=== PATIENT | female | born 1955 | race Two or more races ===

== ENCOUNTER 2022-03-15 20:52 | Inpatient (IN) | payer OTHER, MEDICAID ==
[~2022-03-15] VITALS: Ht 160 cm; Wt 188.9 kg
[2022-03-15] MEDS ORDERED: InsuLIN REG 1unit/0.01ml Soln (100units/ml) IV ONE (22:15)
[2022-03-15] MEDS ORDERED: SODIUM CHLORIDE 0.9% 1,000 ML IV ONE (22:15)
[2022-03-15 22:25] LABS: Urine Bacteria NONE SEEN /hpf (None Seen); Urine Blood Negative /uL (Negative); Urine Specific Gravity 1.031 (1.001-1.035); Urine WBC 1 /hpf (0 - 5)
[2022-03-15 23:30] LABS: Basophils # (auto) 0 10 ^3/uL (0-0.2); Basophils % (auto) 0.3 % (0.0-2.0); Eosinophils # (auto) 0.2 10 ^3/uL (0-0.8); Hematocrit 48.3 % (36.0-46.0); Hemoglobin 15.5 g/dL (12.2-16.2); Lymphocytes # (auto) 1.9 10 ^3/uL (0.4-5.4); Lymphocytes % (auto) 24.9 % (10.0-50.0); Mean Corpuscular Hemoglobin 29.6 pg (28.0-32.0); Mean Corpuscular Hgb Conc. 32.1 g/dL (32.0-36.0); Mean Corpuscular Volume 92.3 fL (80.0-100.0); Monocytes # (auto) 0.6 10 ^3/uL (0-1.3); Monocytes % (auto) 7.2 % (0.0-12.0); Neutrophils % (auto) 64.6 % (37.0-80.0); Nucleated Red Blood Cells % 0.1 %; Red Blood Cells 5.23 10^6/uL (4.0-5.20); Red Cell Distribution Width 13.2 % (11.8-14.3); White Blood Cell 7.8 10^3/uL (4.4-10.8)
[2022-03-15 23:51] LABS: Albumin 3.7 g/dL (3.4-5.0); Calcium 9.6 mg/dL (8.5-10.1); Potassium 5.2 mmol/L (3.5-5.1)
[2022-03-15 23:55] LABS: Total Protein 7.1 g/dL (6.4-8.2)
[2022-03-16] LABS: Bilirubin, Total 0.6 mg/dL (0.2-1.0)
[2022-03-16] MEDS ORDERED: SODIUM CHLORIDE 0.9% 1,000 ML IV ONE (02:00)
[2022-03-16] MEDS ORDERED: diazePAM 5 MG TAB PO ONE (04:15)
[2022-03-16] MEDS ORDERED: DEXTROSE (50%) 50ML SYRG IV PRN ×2 (04:15→13:15)
[2022-03-16] MEDS ORDERED: ACETAMINOPHEN 325 MG TAB PO PRN (04:15)
[2022-03-16] MEDS ORDERED: ONDANSETRON HCL 4 MG/2 ML VIAL IV PRN (04:15)
[2022-03-16] MEDS ORDERED: SODIUM ZIRCONIUM CYCL 10 GM PAK PO ONE (04:15)
[2022-03-16] MEDS ORDERED: TEMAZEPAM 15 MG CAP PO PRN (04:15)
[2022-03-16] MEDS ORDERED: SODIUM CHLORIDE 0.9% 1,000 ML IV SCH ×2 (05:45→12:45)
[2022-03-16] MEDS: ACCU-CHEK COMFORT CURVE STRIP VI SCH ×5 (08:25→23:42)
[2022-03-16] MEDS: InsuLIN REG 1unit/0.01ml Soln (100units/ml) SC SCH ×5 (08:50→23:39)
[2022-03-16] MEDS: PANTOPRAZOLE 40 MG TAB PO SCH (09:15)
[2022-03-16] MEDS: ENOXAPARIN SOD 40 MG/0.4 ML SYRINGE SC SCH (09:16)
[2022-03-16] MEDS ORDERED: LISINOPRIL 20 MG TAB PO SCH (10:00)
[2022-03-16] MEDS ORDERED: CELE100C82 PO (12:08)
[2022-03-16] MEDS ORDERED: LEV50T PO (12:09)
[2022-03-16] MEDS ORDERED: ASPI-543 PO (12:10)
[2022-03-16] MEDS ORDERED: LISI-713 PO (12:10)
[2022-03-16] MEDS ORDERED: amLODIPine BESYLATE 5 MG TAB PO ONE (12:45)
[2022-03-16] MEDS: SODIUM CHLORIDE 0.9% 1,000 ML IV SCH ×2 (13:46→19:55)
[2022-03-16] MEDS ORDERED: CELECOXIB 100 MG CAP PO ONE (14:00)
[2022-03-16] MEDS ORDERED: ASPirin 81 mg TAB PO ONE (14:00)
[2022-03-16 22:00] VITALS: BP 119/64
[2022-03-16] MEDS ORDERED: BECL80AE11 INH (22:33)
[2022-03-16] MEDS ORDERED: GLUC1TAB18 PO (22:33)
[2022-03-16] MEDS ORDERED: POTA8TAB2 PO (22:33)
[2022-03-16] MEDS ORDERED: DIAZ2TAB2 PO (22:33)
[2022-03-16] MEDS ORDERED: CHOLCAP11 PO (22:33)
[2022-03-16] MEDS ORDERED: ASCO500T11 GT (22:33)
[2022-03-16] MEDS ORDERED: AZEL0.1S NAS (22:33)
[2022-03-16] MEDS ORDERED: MAGN400T40 OR (22:33)
[2022-03-16] MEDS ORDERED: ALBUAER3 IN (22:33)
[2022-03-16] MEDS ORDERED: TRIA0.1O TOP (22:33)
[2022-03-16] MEDS ORDERED: RIBO100T3 PO (22:33)
[2022-03-16] MEDS ORDERED: HYDR-4902 PO (22:33)
[2022-03-16] MEDS ORDERED: OYST500T28 PO (22:33)
[2022-03-16] MEDS ORDERED: GING500C3 PO (22:33)
[2022-03-16] MEDS ORDERED: CLON0.1T PO (22:33)
[2022-03-16] MEDS ORDERED: MILK1000 OR (22:33)
[2022-03-16] MEDS ORDERED: VITA400T4 PO (22:33)
[2022-03-17] MEDS: SODIUM CHLORIDE 0.9% 1,000 ML IV SCH ×4 (03:32→22:52)
[2022-03-17] MEDS: ACCU-CHEK COMFORT CURVE STRIP VI SCH ×5 (04:02→20:28)
[2022-03-17] MEDS: InsuLIN REG 1unit/0.01ml Soln (100units/ml) SC SCH ×5 (04:04→20:28)
[2022-03-17 04:47] VITALS: BP 118/94
[2022-03-17 05:41] LABS: Basophils # (auto) 0 10 ^3/uL (0-0.2); Basophils % (auto) 0.5 % (0.0-2.0); Eosinophils # (auto) 0.4 10 ^3/uL (0-0.8); Eosinophils % (auto) 5.3 % (0.0-7.0); Hematocrit 44.9 % (36.0-46.0); Hemoglobin 14.6 g/dL (12.2-16.2); Lymphocytes # (auto) 2.4 10 ^3/uL (0.4-5.4); Lymphocytes % (auto) 29.7 % (10.0-50.0); Mean Corpuscular Hemoglobin 29.6 pg (28.0-32.0); Mean Corpuscular Hgb Conc. 32.6 g/dL (32.0-36.0); Mean Corpuscular Volume 90.7 fL (80.0-100.0); Monocytes # (auto) 0.8 10 ^3/uL (0-1.3); Monocytes % (auto) 9.4 % (0.0-12.0); Neutrophils # (auto) 4.4 10 ^3/uL (1.6-8.6); Neutrophils % (auto) 55.1 % (37.0-80.0); Nucleated Red Blood Cells % 0.2 %; Red Blood Cells 4.96 10^6/uL (4.0-5.20); Red Cell Distribution Width 13.1 % (11.8-14.3)
[2022-03-17 05:59] LABS: Albumin 3.3 g/dL (3.4-5.0); Potassium 4.7 mmol/L (3.5-5.1)
[2022-03-17 06:04] LABS: BUN/Creatinine Ratio 21.6; Bilirubin, Total 0.9 mg/dL (0.2-1.0); Total Protein 6.4 g/dL (6.4-8.2)
[2022-03-17] MEDS: ASPirin 81 mg TAB PO SCH (08:02)
[2022-03-17] MEDS: PANTOPRAZOLE 40 MG TAB PO SCH (08:02)
[2022-03-17] MEDS: ENOXAPARIN SOD 40 MG/0.4 ML SYRINGE SC SCH (08:02)
[2022-03-17] MEDS: LEVOTHYROXINE SODIUM 50 MCG TAB PO SCH (08:02)
[2022-03-17] MEDS: amLODIPine BESYLATE 5 MG TAB PO SCH (08:03)
[2022-03-17] MEDS: CELECOXIB 100 MG CAP PO SCH (08:04)
[2022-03-17 08:30] VITALS: BP 121/62
[2022-03-17] MEDS ORDERED: LISINOPRIL 20 MG TAB PO SCH (10:00)
[2022-03-17] MEDS ORDERED: PATIENTS OWN MEDICATION (Lisinopril (Zestril) 1 TAB) PO SCH (10:00)
[2022-03-17 12:30] VITALS: BP 106/66
[2022-03-17 16:14] VITALS: BP 89/54
[2022-03-17 18:39] VITALS: BP 108/51
[2022-03-17 22:00] VITALS: BP 115/63
[2022-03-17] MEDS: BECLOMETHASONE PO SCH (22:29)
[2022-03-18] MEDS: InsuLIN REG 1unit/0.01ml Soln (100units/ml) SC SCH ×7 (00:18→23:52)
[2022-03-18] MEDS: ACCU-CHEK COMFORT CURVE STRIP VI SCH ×7 (00:19→23:48)
[2022-03-18 05:00] VITALS: BP 106/58
[2022-03-18] MEDS: SODIUM CHLORIDE 0.9% 1,000 ML IV SCH ×4 (05:15→22:14)
[2022-03-18 05:51] LABS: Albumin 3.1 g/dL (3.4-5.0); BUN/Creatinine Ratio 22.3; Calcium 8.7 mg/dL (8.5-10.1); Potassium 4.9 mmol/L (3.5-5.1)
[2022-03-18 05:54] LABS: Bilirubin, Total 0.8 mg/dL (0.2-1.0)
[2022-03-18 09:00] VITALS: BP 136/81
[2022-03-18] MEDS: ASPirin 81 mg TAB PO SCH (09:16)
[2022-03-18] MEDS: BECLOMETHASONE PO SCH ×2 (09:16→22:00)
[2022-03-18] MEDS: LEVOTHYROXINE SODIUM 50 MCG TAB PO SCH (09:16)
[2022-03-18] MEDS: CELECOXIB 100 MG CAP PO SCH (09:17)
[2022-03-18] MEDS: amLODIPine BESYLATE 5 MG TAB PO SCH (09:17)
[2022-03-18] MEDS: ENOXAPARIN SOD 40 MG/0.4 ML SYRINGE SC SCH (09:18)
[2022-03-18 10:24] LABS: Hepatitis B Surface Antibody Negative (Negative)
[2022-03-18 10:49] LABS: Hepatitis A Total Antibody Negative (Negative)
[2022-03-18] MEDS ORDERED: FURO40TA4 PO (12:30)
[2022-03-18 13:00] VITALS: BP 122/59
[2022-03-18 13:02] LABS: Hepatitis C Antibody Negative (Negative)
[2022-03-18] MEDS ORDERED: FUROSEMIDE 40 MG TAB PO ONE (16:00)
[2022-03-18 17:00] VITALS: BP 119/77
[2022-03-18] MEDS ORDERED: HYDROcodone-ACET 5/325MG TAB PO PRN (17:30)
[2022-03-18 21:49] VITALS: BP 111/63
[2022-03-19] MEDS: ACCU-CHEK COMFORT CURVE STRIP VI SCH ×2 (04:38→08:00)
[2022-03-19] MEDS: InsuLIN REG 1unit/0.01ml Soln (100units/ml) SC SCH ×3 (04:40→12:55)
[2022-03-19 05:00] VITALS: BP 118/66
[2022-03-19 05:51] VITALS: BP 118/66
[2022-03-19] MEDS: SODIUM CHLORIDE 0.9% 1,000 ML IV SCH (06:27)
[2022-03-19] MEDS: LEVOTHYROXINE SODIUM 50 MCG TAB PO SCH (06:56)
[2022-03-19] MEDS: amLODIPine BESYLATE 5 MG TAB PO SCH (08:42)
[2022-03-19] MEDS: CELECOXIB 100 MG CAP PO SCH (08:43)
[2022-03-19] MEDS: ASPirin 81 mg TAB PO SCH (08:43)
[2022-03-19] MEDS: ENOXAPARIN SOD 40 MG/0.4 ML SYRINGE SC SCH (08:43)
[2022-03-19 08:55] VITALS: BP 112/55
[2022-03-19] MEDS: BECLOMETHASONE PO SCH (08:56)
[2022-03-19] MEDS: FUROSEMIDE 40 MG TAB PO SCH ×2 (08:57→14:36)
[2022-03-19] MEDS ORDERED: METF-929 PO (09:15)
[2022-03-19 13:00] VITALS: BP 190/88
[2022-03-19 14:23] VITALS: BP 118/66
[2022-03-19 16:53] VITALS: BP 140/92
== END 2022-03-19 19:05 | disposition home or self-care (01) | DRG 638 ==
LOC: ER 20:55 → OVERFLOW 03-16 04:15 → CENTRAL 03-16 18:23
PROVIDERS: ADMIT Nurse Practitioner; ATTEND Family Medicine
DX: E10.65 Type 1 diabetes mellitus with hyperglycemia (principal); N17.9 Acute kidney failure, unspecified; Z68.45 Body mass index [BMI] 70 or greater, adult; E86.0 Dehydration; E87.5 Hyperkalemia; I10 Essential (primary) hypertension; E66.01 Morbid (severe) obesity due to excess calories; E03.9 Hypothyroidism, unspecified; J45.909 Unspecified asthma, uncomplicated; K76.0 Fatty (change of) liver, not elsewhere classified; M06.9 Rheumatoid arthritis, unspecified; Z85.118 Personal history of other malignant neoplasm of bronchus and lung; Z91.040 Latex allergy status; Z20.822 Contact with and (suspected) exposure to COVID-19; Z71.3 Dietary counseling and surveillance
CPT/HCPCS: 36415; 36600; 71045; 71250; 74176; 80053; 81001; 82728; 82805; 82962; 83036; 83605; 84443; 84484; 85025; 86704; 86706; 86708; 86803; 87340; 93005; 96361; 96374; G0378; J1815